=== PATIENT | female | born 1945 | race Hispanic/Latino ===

== ENCOUNTER 2023-11-14 08:26 | Inpatient (IN) | payer OTHER ==
[2023-11-14 08:38] LABS: Absolute Lymphocytes (CBC) 1.3 K/uL (0.7-4.9); Lymphocytes % 21.9 % (15.3-44.8); MCV 92.6 fL (80-100); MPV 9.4 fL (7.6-11.3); Platelets 300 thou/uL (152-406); RBC Red Blood Cell Count 3.78 M/uL (3.86-4.86)
[2023-11-14] MEDS: Ringers Lactate 1,000 ML IV ONE (08:45)
[2023-11-14 08:48] LABS: Potassium 4.5 mEq/L (3.5-5.1)
[2023-11-14] MEDS: MIDAZOLAM HCL 2 MG/2 ML INJ ONE (09:02)
[2023-11-14] MEDS: EPINEPHRINE 1 MG/ML VIAL ONE (09:02)
[2023-11-14] MEDS: FENTANYL CITR 100 MCG/2 ML ONE ×2 (09:02→12:03)
[2023-11-14] MEDS: LIDOCAINE 1% MPF 5 ML VIAL ONE (09:02)
[2023-11-14] MEDS: dexAMETHasone 10 MG/ML VIAL ONE (09:02)
[2023-11-14] MEDS: ROPIVACAINE HCL ONE (09:03)
[2023-11-14] MEDS ORDERED: propofoL 200 MG/20 ML VIAL IV ONE (10:21)
[2023-11-14] MEDS ORDERED: LIDOCAINE 2% MPF 5 ML VIAL ONE (10:21)
[2023-11-14] MEDS ORDERED: KETOROLAC 30 MG/ML INJ ONE (10:21)
[2023-11-14] MEDS: CEFAZOLIN SODIUM 1 GM/VIAL ONE (10:21)
[2023-11-14] MEDS ORDERED: NS 0.9% VIAL 10 ML ONE ×2 (10:21→10:24)
[2023-11-14] MEDS ORDERED: dexAMETHasone 10 MG/ML VIAL ONE (10:21)
[2023-11-14] MEDS ORDERED: ONDANSETRON 4 MG/2 ML VIAL ONE (10:21)
[2023-11-14] MEDS ORDERED: Phenylephrine HCl 10 MG/ML 1 ML VIAL ONE (10:25)
--- NOTE | 2023-11-14 11:52 | P.BOP ---
Preoperative diagnosis: left tibial plateau fracture Postoperative diagnosis: same Primary procedure: left tibial plateau ORIF Estimated blood loss: 20ccs Anesthesia: General Complications: None Transferred to: Recovery Room Condition: Good
--- NOTE | 2023-11-14 12:48 | RAD REPORT ---
EXAM DESCRIPTION: RAD - Fluoroscopy <1 Hour - 11/14/2023 12:13 pm CLINICAL HISTORY: LEFT ORIF PROXIMAL TIBIA PLATEAU COMPARISON: None available. FINDINGS: Nineteen Images were sent to PACS, documenting fluoroscopy use during left proximal tibia ORIF procedure. No radiologist was available for the procedure, nor will any image interpretation he provided. Please refer to the procedural report for additional details. Fluoroscopy time: 0.8 Minutes. IMPRESSION: Documentation of fluoroscopy utilization as above.
--- NOTE | 2023-11-14 12:53 | EKG ---
Test Date: 2023-11-14 Test Time: 09:20:15 Dba Manager: NERIS MEASUREMENT RESULTS: Intervals: Rate: 66 NH: 150 QRSD: 74 QT: 376 QTc: 394 [place]: P: 3 NH: 150 QRS: 46 T: 48 INTERPRETIVE STATEMENTS: Normal sinus rhythm Normal ECG Compared to ECG 12/24/1998 12:04:00 No significant changes Electronically Signed On 11-14-23 12:52:08 PODIATRIC TECHNICIAN by Yvan Crespo
[2023-11-14 13:27] VITALS: BMI 29.6
[2023-11-14] MEDS: HYDROCODONE/APAP 7.5/325 MG TAB PO PRN (14:05)
[2023-11-14] MEDS: CEFAZOLIN 1 GM in NA CHLORIDE 0.9% 50 ML IVPB SCH (17:00)
--- NOTE | 2023-11-14 22:24 | OP ---
Date of Procedure: 11/14/2023 Surgeon: Marko Saldivar MD Preoperative Diagnosis: Left displaced comminuted tibial plateau fracture. Postoperative Diagnosis: Left displaced comminuted tibial plateau fracture. Procedure: Open reduction and internal fixation of left tibial plateau fracture with allograft bone grafting using the Biomet periarticular lateral locking plate. Estimated Blood Loss: 20 cc. Complications: There were no complications. Indications For Operation: Ms. Durham is a 78-year-old female, who unfortunately injured her left k nee. She was seen in an emergency department, where x-rays were taken, which demonstrated a small cr ack along the medial tibial plateau as well as what appeared to be a split depression of the lateral tibial plateau. When seen in my office, her skin looked good, however, decision was made to pursue a CT scan as this may give us a better idea of the position of the depressed fragments as well as the morphology of the fracture itself. She arrived after the CT scan and risks, benefits, and alternativ es to different methods of treating her again discussed and we will proceed with open reduction and i nternal fixation of tibial plateau fracture. She says she understands things as presented and wishes to proceed. Description Of Procedure: The patient was taken to the operating room and placed in supine position. General anesthesia was easily obtained by the Anesthesia staff. Following this, left lower extremi ty was then prepped and draped in usual sterile fashion for the procedure and ensure that we get good C-arm views. After this was then placed in a triangle, the leg was then elevated, but not exsanguin ated. Tourniquet was raised. A standard anterolateral incision was made carefully through skin only . Meticulous hemostasis being maintained using Bovie electrocautery. A full-thickness flap was then developed, which allowed for visualization of the tibialis anterior and an incision is made, leaving a very small amount of tibialis anterior attached to the tibia anteriorly. This was then gently mov ed off the flat surface of the tibia as well as the area near Gerdy's tubercle with a Nichols. The spli t on the lateral side makes easy access to the depressed portion on the lateral side and a punch was used to elevate the subchondral bone up to the appropriate level. It was confirmed using C-arm and i t was then backfilled with significant amount of cancellous bone chips and cubes. After this, the pl ate was then applied in standard fashion using generous biplanar C-arm radiography to ensure proper l ength, placement of all screws. After this was completed, the wound was copiously irrigated and the tibialis anterior was then tacked gently back, no attempt was made to tight close, and a medium Hemov ac drain was placed under the muscle. After this, the skin was closed using interrupted 2-0 Vicryl s utures followed by kristine. The patient was then placed in a well-padded sterile dressing, awakened, and taken to recovery room. ARLYN Voice ID: [id number] Report ID: [id number]
[2023-11-15] MEDS: DOCUSATE NA 100 MG CAP PO PRN (01:43)
[2023-11-15] MEDS: ENOXAPARIN 30 MG/0.3 ML SQ SCH (06:15)
[2023-11-15 06:49] LABS: Hematocrit 29.5 % (36.0-45.0)
[2023-11-15 12:03] VITALS: O2SAT 96
[2023-11-16 07:00] LABS: Hematocrit 29.3 % (36.0-45.0)
[2023-11-16] MEDS: ONDANSETRON 4 MG/2 ML VIAL IV PRN (10:57)
[2023-11-17 06:26] LABS: Hematocrit 29.9 % (36.0-45.0)
[2023-11-17 09:59] VITALS: TEMP 97.6
[2023-11-17 12:54] VITALS: BP 150/48
== END 2023-11-17 13:17 | disposition swing bed (61) | DRG 494 ==
LOC: OR 08:26 → 2ND 11:46
PROVIDERS: ADMIT Orthopaedic Surgery; ATTEND Orthopaedic Surgery
PROC: 0QSH04Z Reposition Left Tibia with Internal Fixation Device, Open Approach (ICD-10-PCS; principal; 2023-11-14 09:45)
DX: S82.142A Displaced bicondylar fracture of left tibia, initial encounter for closed fracture (principal); I10 Essential (primary) hypertension; Z88.5 Allergy status to narcotic agent; Z88.8 Allergy status to other drugs, medicaments and biological substances; Z96.651 Presence of right artificial knee joint; Z90.710 Acquired absence of both cervix and uterus
CPT/HCPCS: 36415; 76000; 80048; 85014; 85018; 85025; 93005; 94010; 97110; 97116; 97139; 97161; 97530; 97542; A4216; J0171; J0690; J1100; J1650; J2001; J2250; J2371; J2405; J2704; J3010; J7120